=== PATIENT | male | born 1960 | race Caucasian/White ===

== ENCOUNTER 2020-06-26 13:03 | Emergency (ER) | payer MEDICAID ==
[~2020-06-26] VITALS: Ht 167.6 cm; Wt 102.0 kg
[2020-06-26 13:28] VITALS: BP 145/87
== END 2020-06-26 15:20 | disposition home or self-care (01) ==
LOC: ER 13:03
DX: M25.572 Pain in left ankle and joints of left foot (principal)
CPT/HCPCS: 99281

== ENCOUNTER 2021-05-19 16:49 | Emergency (ER) | payer MEDICAID ==
[~2021-05-19] VITALS: Ht 165.1 cm; Wt 99.8 kg
[2021-05-19] MEDS ORDERED: IBUPROFEN 600MG TABLET PO STA (23:18)
[2021-05-19] MEDS ORDERED: ALBU6.7H9 INH (23:49)
[2021-05-19] MEDS ORDERED: IBUP-2029 MT (23:49)
[2021-05-19 23:55] VITALS: BP 149/84
== END 2021-05-20 00:07 | disposition home or self-care (01) ==
LOC: ER 16:49
DX: J45.901 Unspecified asthma with (acute) exacerbation (principal); R10.11 Right upper quadrant pain; F99 Mental disorder, not otherwise specified
CPT/HCPCS: 71045; 99283

== ENCOUNTER 2021-07-22 09:27 | Emergency (ER) | payer MEDICAID ==
[~2021-07-22] VITALS: Ht 170.2 cm; Wt 108.0 kg
[~2021-07-22 09:27] MED LIST: ALBU6.7H9 INH; IBUP-2029 MT
[2021-07-22] MEDS ORDERED: PREDNISONE 20MG TABLET PO STA (11:39)
[2021-07-22] MEDS ORDERED: IPRATROPIUM BROMIDE (0.02%) 0.5MG/2.5ML NEB HHN STA ×2 (11:39→13:05)
[2021-07-22] MEDS ORDERED: ALBUTEROL (0.083%) 2.5MG/3ML NEB HHN STA ×2 (11:39→13:05)
[2021-07-22] MEDS ORDERED: TRAMADOL 50MG TABLET PO ONE (11:45)
[2021-07-22 12:19] VITALS: BP 136/94
[2021-07-22] MEDS ORDERED: ALBUTEROL (0.083%) 2.5MG/3ML NEB ONE ×2 (12:38→13:17)
[2021-07-22] MEDS ORDERED: IPRATROPIUM BROMIDE (0.02%) 0.5MG/2.5ML NEB ONE ×2 (12:38→13:17)
[2021-07-22] MEDS ORDERED: HYDROCODONE/ACETAMINOPHEN 10/325MG TABLET PO ONE (13:00)
[2021-07-22] MEDS ORDERED: P20 MT (13:53)
[2021-07-22] MEDS ORDERED: HYDR-4009 MT (13:53)
== END 2021-07-22 15:19 | disposition home or self-care (01) ==
LOC: ER 10:07 → CANBEDREQ 16:47
DX: J44.1 Chronic obstructive pulmonary disease with (acute) exacerbation (principal); M54.50 Low back pain, unspecified; G40.909 Epilepsy, unspecified, not intractable, without status epilepticus; Z86.19 Personal history of other infectious and parasitic diseases
CPT/HCPCS: 71045; 72100; 94640; 99284; J7512; Z7610